=== PATIENT | female | born 1945 | race Hispanic/Latino ===

== ENCOUNTER 2016-10-26 10:59 | Outpatient (CLI) | payer MEDICARE ==
--- NOTE | 2016-10-29 07:43 | Mammography Report ---
BONE DENSITY STUDY: DEFINITIONS: BMD = Bone Mineral Density T-score = BMD related to mean peak bone mass of young adult (mean expressed in Standard Deviation) Z-score = Age matched BMD expressed in SD World Health Organization (WHO) Diagnostic Criteria Normal T-score > -1 SD Osteopenia T-score between -1 and -2.4 SD Osteoporosis T-score -2.5 SD or below FINDINGS: The weighted average BMD of lumbar spine L1-L4 is 0.751 with a T-score of -2.7. The weighted average BMD of hip is 0.731 with a T-score of -1.7. IMPRESSION: The patient's T-score is diagnostic for osteoporosis and high relative risk for fracture. NOTE: BMD is not the only risk factor for fracture; also consider factors such as the patient's age, risk of falling, previous osteoporotic fracture, family history of osteoporotic fractures, current smoker, and low body weight. West's triangle is a region of interest in femur, predominantly of trabecular bone. It is not a true anatomic site, and [facility] does not recommend its use clinically.
== END 2016-10-26 11:00 | disposition home or self-care (01) ==
LOC: MAMMO 10:59
PROVIDERS: ATTEND Obstetrics & Gynecology Gynecology
DX: M81.0 Age-related osteoporosis without current pathological fracture (principal)
CPT/HCPCS: 77080

== ENCOUNTER 2017-05-02 13:09 | Outpatient (CLI) | payer MEDICARE ==
--- NOTE | 2017-05-07 13:35 | Mammography Report ---
DEXA VERTEBRAL FRACTURE ASSESSMENT: 05/02/17 13:00:00 CLINICAL: Osteoporosis and loss of height. TECHNIQUE: Quantitative measurements of vertebral body height were taken at 3 points from T4 to L4 according to the [employer] semi-quantitative method of fracture assessment. Measurements are compared to an 07/03/11 comparison study. FINDINGS: Mild grade 1 wedge deformities at T6, T9, T11 and T12. Grade 1 mid wedge deformity at T12. The T6 and T12 deformities are new compared to the last exam and the T10 deformity has progressed to a 28% grade 2 wedge deformity. There is some discordance in that a T5 deformity is no longer identified and after further review of the pars exam, the T6 deformity was misstated in the that report. The rest of the levels are normal and unchanged. IMPRESSION: New grade 1 wedge deformities at T6, T9, T11 and T12 and progression of deformity at T10 to a grade 2. Discordance in T5 measurements between the two exams which can only be accounted for by a difference in cursor placement.
== END 2017-05-02 13:10 | disposition home or self-care (01) ==
LOC: MAMMO 13:09
PROVIDERS: ATTEND Obstetrics & Gynecology Gynecology
DX: M81.0 Age-related osteoporosis without current pathological fracture (principal); M43.8X4 Other specified deforming dorsopathies, thoracic region
CPT/HCPCS: 77086

== ENCOUNTER 2018-04-15 13:15 | Outpatient (CLI) | payer MEDICARE ==
--- NOTE | 2018-04-16 08:12 | Mammography Report ---
BONE DEXA:04/15/18 13:15:00 CLINICAL: Postmenopausal. COMPARISON: 10/26/16, 07/27/13, 07/03/11, 02/11/06 and 01/29/04 TECHNIQUE: Two site bone DEXA performed on an [employer] scanner. FINDINGS: The average BMD of the lumbar spine L1-L4 is 0.676g/cm squared with a T-score of -3.4 and a Z-score of -1.1. This compares to 0.743g/cm squared on the last exam and represents a -9.0% change from the previous study and a -1.3% change from baseline. The average BMD of the left hip is 0.731g/cm squared with a T-score of -1.7 and a Z-score of -0.2. This compares to 0.698g/cm squared on the last exam and represents a +4.8% change from the previous study but a -5.5% change from baseline. IMPRESSION: 1. WHO classification: Osteoporosis with high fracture risk based on spine measurements. A significant decline in spine BMD compared to the last exam. 2. WHO classification: Osteopenia with increased fracture risk based on left hip measurements. A moderate improvement in left hip BMD compared to the last exam. RECOMMENDATION: Clinical correlation and routine screening. DEFINITIONS: BMD = Bone Mineral Density T-score = BMD related to mean peak bone mass of young adult (mean expressed in Standard Deviation) Z-score = Age matched BMD expressed in SD World Health Organization (WHO) Diagnostic Criteria Normal T-score > -1 SD Osteopenia T-score between -1 and -2.4 SD Osteoporosis T-score -2.5 SD or below NOTE: BMD is not the only risk factor for fracture; also consider factors such as the patient's age, risk of falling, previous osteoporotic fracture, family history of osteoporotic fractures, current smoker, and low body weight. Z-scores are not calculated if >80 years of age.
== END 2018-04-15 13:16 | disposition home or self-care (01) ==
LOC: MAMMO 13:15
PROVIDERS: ATTEND Obstetrics & Gynecology Gynecology
DX: Z13.820 Encounter for screening for osteoporosis (principal); M81.0 Age-related osteoporosis without current pathological fracture; M85.88 Other specified disorders of bone density and structure, other site; Z78.0 Asymptomatic menopausal state
CPT/HCPCS: 77080